=== PATIENT | female | born 1955 | race Caucasian/White ===

== ENCOUNTER 2018-02-02 17:17 | Inpatient (IN) | payer MEDICAID, OTHER ==
[2018-02-02] MEDS ORDERED: Sodium Chloride 0.9% 1,000 ML IV SCH (18:15)
--- NOTE | 2018-02-02 18:25 | ED PDOC ---
Arrival/HPI - General Historian: Patient - History of Present Illness Narrative History of Present Illness (Text): 02/02/18 18:21 62yr old female with hx of DM, HTN, Stroke presents today with 1 week history of worsening headaches, 3 day history of right sided arm numbness. pt states in the morning today she noticed sudden onset of vision loss. pt states she has been having dizziness. pt denies chest pain or shortness of breath. no abdominal pain. no fever/chills. no vomiting/diarrhea. no urinary symptoms. pt states she sees only black in the right eye which occurred suddenly. denies pain with eye movement. per patients daughter her BP was elevated at home so took her BP medication. no other complaints. <Genna Beverly - Last Filed: 02/03/18 01:20> <Wellington Padilla - Last Filed: 02/03/18 22:51> - General Chief Complaint: High Blood Pressure Time Seen by Provider: 02/02/18 17:32 Past Medical History - Provider Review Nursing Documentation Reviewed: Yes - Travel History Have you recently traveled outside [place] w/in the past 3 mons?: No - Infectious Disease Hx of Infectious Diseases: None - Tetanus Immunization Tetanus Immunization: Up to Date - Cardiac Hx Cardiac Disorders: Yes Hx Hypertension: Yes - Pulmonary Hx Respiratory Disorders: Yes Hx Asthma: Yes - Neurological Hx Neurological Disorder: No - HEENT Hx HEENT Disorder: No - Renal Hx Renal Disorder: No - Endocrine/Metabolic Hx Endocrine Disorders: Yes Hx Diabetes Mellitus Type 2: Yes - Hematological/Oncological Hx Blood Disorders: No - Integumentary Hx Dermatological Disorder: No - Musculoskeletal/Rheumatological Hx Musculoskeletal Disorders: No Other/Comment: head injury - Gastrointestinal Hx Gastrointestinal Disorders: No - Genitourinary/Gynecological Hx Genitourinary Disorders: No - Psychiatric Hx Psychophysiologic Disorder: No Hx Substance Use: No - Anesthesia Hx Anesthesia Reactions: No - Suicidal Assessment Feels Threatened In Home Enviroment: No <Genna Beverly - Last Filed: 02/03/18 01:20> Family/Social History - Physician Review Nursing Documentation Reviewed: Yes Family/Social History: Unknown Family HX Smoking Status: Never Smoked Hx Alcohol Use: No Hx Substance Use: No Hx Substance Use Treatment: No <Genna Beverly - Last Filed: 02/03/18 01:20> Allergies/Home Meds <Genna Beverly - Last Filed: 02/03/18 01:20> <Wellington Padilla - Last Filed: 02/03/18 22:51> Allergies/Adverse Reactions: Allergies No Known Allergies Allergy (Verified 02/02/18 17:36) Home Medications: Home Meds Medication Instructions Recorded Confirmed amLODIPine [Norvasc] 5 mg PO DAILY 02/02/18 02/02/18 Albuterol Sulfate [Ventolin Hfa] 1 inh INH PRN PRN 02/03/18 02/03/18 Aspirin [Adult Aspirin] 81 mg PO DAILY 02/03/18 02/03/18 Atorvastatin [Lipitor] 10 mg PO DAILY 02/03/18 02/03/18 Folic Acid 1 mg PO DAILY 02/03/18 02/03/18 Insulin Aspart [Novolog FLEXPEN] 8 units SC AC 02/03/18 02/03/18 Insulin Glargine, Recombina 20 unit SC HS 02/03/18 02/03/18 [Lantus] Linagliptin [Tradjenta] 5 mg PO DAILY 02/03/18 02/03/18 Montelukast [Singulair] 10 mg PO DAILY 02/03/18 02/03/18 Omeprazole 20 mg PO DAILY 02/03/18 02/03/18 Pregabalin [Lyrica] 75 mg PO DAILY 02/03/18 02/03/18 Vitamin B Complex [Nature's Blend 1 tab PO DAILY 02/03/18 02/03/18 Balance B-100] Review of Systems - Review of Systems Constitutional: absent: Fatigue, Fevers Eyes: Vision Changes. absent: Eye Pain ENT: absent: Sinus Congestion Respiratory: absent: SOB, Cough Cardiovascular: absent: Chest Pain, Palpitations Gastrointestinal: absent: Abdominal Pain, Nausea, Vomiting Musculoskeletal: absent: Arthralgias, Back Pain Skin: absent: Rash, Pruritis Neurological: Headache, Dizziness, Other (right arm numbness) Psychiatric: absent: Anxiety, Depression <Genna Beverly - Last Filed: 02/03/18 01:20> Physical Exam Vital Signs Reviewed: Yes Vital Signs Temp Pulse Resp BP Pulse Ox 02/02/18 17:30 99.2 F 84 20 136/84 98 Temperature: Afebrile Blood Pressure: Normal Pulse: Regular Respiratory Rate: Normal Appearance: Positive for: Well-Appearing, Non-Toxic, Comfortable Pain Distress: None Mental Status: Positive for: Alert and Oriented X 3 - Systems Exam Head: Present: Atraumatic Pupils: Present: PERRL Extroacular Muscles: Present: EOMI Conjunctiva: Present: Normal Mouth: Present: Moist Mucous Membranes Neck: Present: Normal Range of Motion Respiratory/Chest: Present: Clear to Auscultation, Good Air Exchange. No: Respiratory Distress, Accessory Muscle Use Cardiovascular: Present: Regular Rate and Rhythm, Normal S1, S2. No: Murmurs Abdomen: No: Tenderness, Rebound, Guarding Back: Present: Normal Inspection Upper Extremity: Present: Normal ROM, NORMAL PULSES, Capillary Refill < 2s. No: Neurovascularly Intact (decreased sensation in right arm. ) Lower Extremity: Present: Normal ROM Neurological: Present: GCS=15, Speech Normal Skin: Present: Warm, Dry Psychiatric: Present: Alert, Oriented x 3 <Genna Beverly T - Last Filed: 02/03/18 01:20> Vital Signs Temp Pulse Resp BP Pulse Ox 02/03/18 00:00 97.6 F 72 16 101/63 99 02/02/18 23:15 78 22 121/45 L 98 02/02/18 23:00 68 18 129/80 96 02/02/18 22:45 92 H 14 145/92 H 97 02/02/18 22:30 72 16 104/72 97 02/02/18 22:15 76 14 102/72 97 02/02/18 22:00 61 20 129/82 99 02/02/18 21:43 77 18 146/83 98 02/02/18 19:31 79 18 134/74 98 02/02/18 17:30 99.2 F 84 20 136/84 98 <Wellington Padilla - Last Filed: 02/03/18 22:51> Medical Decision Making ED Course and Treatment: 02/02/18 pt was seen immediately by dr. Padilla. code stroke called. head ct; FINDINGS: HEMORRHAGE: No intracranial hemorrhage. BRAIN: No mass effect or edema. Cortical and cerebellar atrophy, periventricular small vessel disease. Lacune or infarcts identified particularly on the right. VENTRICLES: Unremarkable. No hydrocephalus. CALVARIUM: No acute findings. Deformity of the left frontal bone which may be the sequela of prior trauma. PARANASAL SINUSES: Unremarkable as visualized. No significant inflammatory changes. MASTOID AIR CELLS: Unremarkable as visualized. No inflammatory changes. OTHER FINDINGS: None. IMPRESSION: No acute intracranial abnormalities. No significant findings to account for the clinical presentation. cbc; elevated WBC Cmp; elevated glucose ekg; normal sinus rhythm at 80 bpm normal axis no ST elevations dr. padilla discussed the case with dr. Abarca; advised CTA head and neck. 02/02/18 21:00 CTA Head and Neck with Intravenous Contrast. CLINICAL HISTORY: CODE STROKE TECHNIQUE: Axial CTA images of the head and neck performed with intravenous contrast. MIP reconstructed images were created and reviewed. 564.81 mGy-cm CONTRAST: With; OMNI 350 142 ml was injected intravenously without incident. COMPARISON: None provided. FINDINGS: VASCULATURE: NECK: COMMON CAROTID ARTERIES No significant canal stenosis. No dissection or occlusion. EXTERNAL CAROTID ARTERIES Patent. NECK: INTERNAL CAROTID ARTERIES No stenosis by NASCET criteria. No dissection or occlusion. VERTEBRAL ARTERIES No significant canal stenosis. No dissection or occlusion. HEAD: ANTERIOR CEREBRAL ARTERIES No significant stenosis. No occlusion. No aneurysm. MIDDLE CEREBRAL ARTERIES No significant stenosis. No occlusion. No aneurysm. POSTERIOR CEREBRAL ARTERIES No significant stenosis. No occlusion. No aneurysm. BASILAR ARTERY No significant stenosis. No occlusion. No aneurysm. OTHER: SOFT TISSUES No acute finding. BONES No acute osseous abnormality. IMPRESSION: Unremarkable CTA of the head and neck. dr. padilla performed bedside ultrasound of eye. No retinal detachment or hemorrhage noted. pressure in right eye measured at 14. pt reassessment; resting comfortably in er. no distress. discussed results with daughter in depth. asa given Po case discussed with dr. corral; accepts admission for r/o stroke, with vision loss, sensory deficit in right arm, headaches. impression; vision loss, right arm numbness, headache admit tele. Reassessment Condition: Re-examined, Unchanged - Lab Interpretations Lab Results: Lab Results 02/02/18 18:14: POC Glucose (mg/dL) 182 H - RAD Interpretation Radiology Orders: 02/02/18 18:14 HEAD W/O (CODE STROKE) [CT] Stat CHEST PORTABLE [RAD] Stat - Medication Orders Current Medication Orders: Sodium Chloride (Sodium Chloride 0.9%) 1,000 mls @ 100 mls/hr IV .Q10H MARLIN <Genna Beverly T - Last Filed: 02/03/18 01:20> - Lab Interpretations Lab Results: 02/02/18 18:20 02/02/18 18:20 Lab Results 02/02/18 19:00: Urine Color Yellow, Urine Appearance Clear, Urine pH 6.0, Ur Specific [place] <= 1.005, Urine Protein Negative, Urine Glucose (UA) Negative, Urine Ketones Negative, Urine Blood Negative, Urine Nitrate Negative, Urine Bilirubin Negative, Urine Urobilinogen 0.2, Ur Leukocyte Esterase Trace H, Urine RBC 0 - 2, Urine WBC 1 - 3, Ur Epithelial Cells 0 - 2, Urine Bacteria Few 02/02/18 19:00: Blood Type A POSITIVE, Antibody Screen Negative, BBK History Checked No verified bt 02/02/18 18:20: Hemoglobin A1c 8.1 H 02/02/18 18:20: Sodium 135, Potassium 4.2, Chloride 100, Carbon Dioxide 25, Anion Gap 14, BUN 16, Creatinine 1.1, Est GFR ( Amer) > 60, Est GFR (Non- Af Amer) 51, Random Glucose 191 H, Calcium 9.5, Total Bilirubin 0.2, AST 29, ALT 19, Alkaline Phosphatase 88, Troponin I < 0.01, Total Protein 8.3, Albumin 4.3, Globulin 4.0, Albumin/Globulin Ratio 1.1, Triglycerides 330 H, Cholesterol 180, LDL Cholesterol Direct 106, HDL Cholesterol 30 02/02/18 18:20: PT 11.4, INR 1.00, APTT 29.0 02/02/18 18:20: WBC 12.7 H, RBC 3.71, Hgb 9.8 L, Hct 31.7 L, MCV 85.4, MCH 26.4, MCHC 30.9 L, RDW 15.6 H, Plt Count 421, MPV 8.4, Gran % 58.6, Lymph % (Auto) 33.6, [place] % (Auto) 7.0 H, Eos % (Auto) 0.6 L, Baso % (Auto) 0.2, Gran # 7.42 H, Lymph # (Auto) 4.3 H, [place] # (Auto) 0.9 H, Eos # (Auto) 0.1, Baso # (Auto) 0.02 02/02/18 18:14: POC Glucose (mg/dL) 182 H - RAD Interpretation Radiology Orders: 02/02/18 18:14 HEAD W/O (CODE STROKE) [CT] Stat CHEST PORTABLE [RAD] Stat 02/02/18 18:52 CTA HEAD/NECK CODE STROKE [CT] Stat - Medication Orders Current Medication Orders: Acetaminophen (Tylenol 325mg Tab) 650 mg PO Q6H PRN PRN Reason: Pain, moderate (4-7) Albuterol/Ipratropium (Duoneb 3 Mg/0.5 Mg (3 Ml) Ud) 3 ml IH Q2H PRN PRN Reason: Shortness of Breath Aspirin (Aspirin Chewable) 81 mg PO DAILY MARLIN Last Admin: 02/03/18 11:38 Dose: 81 mg Atorvastatin Calcium (Lipitor) 20 mg PO DIN MARLIN Last Admin: 02/03/18 17:15 Dose: 20 mg Dextrose (Dextrose 50% Inj) 0 ml IV STAT PRN; Protocol PRN Reason: Hypoglycemia Protocol Famotidine (Pepcid) 40 mg PO HS MARLIN Dextrose (Dextrose 5% In Water 1000 Ml) 1,000 mls @ 0 mls/hr IV .Q0M PRN; Protocol PRN Reason: Hypoglycemia Protocol Insulin Human Regular (Humulin R Med) 0 units SC ACHS MARLIN; Protocol Last Admin: 02/03/18 16:58 Dose: Not Given Non-Admin Reason: BP Parameters Not Met [facility] Blood Glucose Document 02/03/18 16:58 AP (Rec: 02/03/18 16:59 AP [id number]) Blood Glucose Finger Stick Blood Glucose (70-120) 145 Discontinued Medications Aspirin (Aspirin) 325 mg PO STAT STA Stop: 02/02/18 21:10 Last Admin: 02/02/18 21:32 Dose: 325 mg Sodium Chloride (Sodium Chloride 0.9%) 1,000 mls @ 100 mls/hr IV .Q10H MARLIN Last Admin: 02/02/18 19:24 Dose: 100 mls/hr eMAR Start Stop Document 02/02/18 19:24 EQ (Rec: 02/02/18 19:24 EQ [id number]) Intravenous Solution Start Date 02/02/18 Start Time 19:24 <Wellington Padilla - Last Filed: 02/03/18 22:51> NIHSS Scale ([place]) Time Performed: 18:00 - How Severe is the Stoke Baseline Level of Consciousness: 0=Alert LOC to Questions: 0=Both comments correct LOC to commands: 0=Obeys both correctly Best Gaze: 0=Normal Visual: 2=Complete hemianopia Facial: 0=Normal Motor Arm - Left: 0=No drift Motor Arm - Right: 0=No drift Motor Leg - Left: 0=No drift Motor Leg - Right: 0=No drift Limb Ataxia: 0=Absent Sensory: 1=Mild to moderate loss Best Language: 0=No aphasia Dysarthia: 0=Normal articulation Extinction & Inattention (Neglect): 0=Normal, no object Score: 3 Risk Level: Minor Stroke Risk <Genna Beverly - Last Filed: 02/03/18 01:20> rTPA Inclusion/Exclusion - Refusal of Treatment Patient Refused Treatment: No - Inclusion Criteria for Altepase Patient is 18 years or Older: Yes The Clinical Diagnosis of Ischemic Stroke That is Causing a Potentially Disabling Neurological Deficit: Yes Time of Onset is Well Established to be Less Than 270 Minute Before Treatment Would Begin: No Risk/Benefit Discussed With Patient/Family Member Present: No <Wellington Padilla - Last Filed: 02/03/18 22:51> Disposition/Present on Arrival - Present on Arrival Any Indicators Present on Arrival: No History of DVT/PE: No History of Uncontrolled Diabetes: No Urinary Catheter: No History of Decub. Ulcer: No History Surgical Site Infection Following: None - Disposition Have Diagnosis and Disposition been Completed?: Yes Disposition Time: 20:45 Patient Plan: Admission, Telemetry <Genna Beverly - Last Filed: 02/03/18 01:20> <Wellington Padilla - Last Filed: 02/03/18 22:51> - Disposition Diagnosis: Vision loss, Right upper extremity numbness, Headache Disposition: HOSPITALIZED Condition: FAIR
[2018-02-02 18:29] LABS: BASO # 0.02 K/mm3 (0.0-2.0); BASO % 0.2 % (0.0-3.0); EOS # 0.1 (0.0-0.7); EOS % 0.6 % (1.5-5.0); GRAN # 7.42 (1.4-6.5); GRAN % 58.6 % (50.0-68.0); HEMOGLOBIN 9.8 g/dL (12.0-16.0); LYMPH # 4.3 (1.2-3.4); LYMPH % 33.6 % (22.0-35.0); MEAN CELL VOLUME 85.4 fl (80.0-105.0); MEAN CORPUSCULAR HEMOGLOBIN 26.4 pg (25.0-35.0); MEAN CORPUSCULAR HGB CONC 30.9 g/dl (31.0-37.0); MEAN PLATELET VOLUME 8.4 fl (7.0-11.0); MONO # 0.9 (0.1-0.6); RBC 3.71 10^6/uL (3.5-6.1); RED CELL DISTRIBUTION WIDTH 15.6 % (11.5-14.5); WHITE BLOOD COUNT 12.7 10^3/uL (4.5-11.0)
--- NOTE | 2018-02-02 18:45 | CT ---
Date of service: 02/02/2018 PROCEDURE: CT HEAD WITHOUT CONTRAST. HISTORY: Code Stroke COMPARISON: None available. TECHNIQUE: Axial computed tomography images were obtained through the head/brain without intravenous contrast. Supplemental Coronal and Sagittal projections created and reviewed. Radiation dose: Total exam DLP = 849.61 mGy-cm. This CT exam was performed using one or more of the following dose reduction techniques: Automated exposure control, adjustment of the mA and/or kV according to patient size, and/or use of iterative reconstruction technique. FINDINGS: HEMORRHAGE: No intracranial hemorrhage. BRAIN: No mass effect or edema. Cortical and cerebellar atrophy, periventricular small vessel disease. Lacune or infarcts identified particularly on the right. VENTRICLES: Unremarkable. No hydrocephalus. CALVARIUM: No acute findings. Deformity of the left frontal bone which may be the sequela of prior trauma. PARANASAL SINUSES: Unremarkable as visualized. No significant inflammatory changes. MASTOID AIR CELLS: Unremarkable as visualized. No inflammatory changes. OTHER FINDINGS: None. IMPRESSION: No acute intracranial abnormalities. No significant findings to account for the clinical presentation. Code stroke protocol: Study completed 18:26 Radiologist notified 18:34 Results conveyed verbally at 18:40. Interpretation finalized and available for review 18:44.
--- NOTE | 2018-02-02 18:47 | RAD ---
Date of service: 02/02/2018 HISTORY: Code Stroke COMPARISON: None. FINDINGS: LUNGS: No active pulmonary disease. PLEURA: No significant pleural effusion identified, no pneumothorax apparent. CARDIOVASCULAR: No atherosclerotic calcification present Normal. OSSEOUS STRUCTURES: No significant abnormalities. VISUALIZED UPPER ABDOMEN: Normal. OTHER FINDINGS: None. IMPRESSION: No active disease.
[2018-02-02 18:52] LABS: BLOOD UREA NITROGEN 16 mg/dL (7-21); GFR NON-AFRICAN AMERICAN 51
[2018-02-02 18:53] LABS: ALB/GLOB RATIO 1.1 (1.1-1.8); ALBUMIN 4.3 g/dL (3.0-4.8); AST/SGOT 29 U/L (14-36); CALCIUM 9.5 mg/dL (8.4-10.5)
[2018-02-02 18:54] LABS: ALT/SGPT 19 U/L (7-56); HDL CHOLESTEROL 30 mg/dL (29-60)
[2018-02-02 18:59] LABS: LDL CHOLESTEROL 106 mg/dL (0-129); TROPONIN I < 0.01 ng/mL
[2018-02-02 19:47] LABS: PROTHROMBIN TIME 11.4 SECONDS (9.4-12.5)
[2018-02-02 20:00] LABS: URINE BILIRUBIN NEGATIVE (NEGATIVE); URINE BLOOD NEGATIVE (NEGATIVE); URINE GLUCOSE (UA) NEGATIVE (NEGATIVE); URINE LEUKOCYTE ESTERASE TRACE Leu/uL (NEGATIVE); URINE PROTEIN NEGATIVE mg/dL (<30 mg/dL); URINE UROBILINOGEN 0.2 E.U./dL (<1 E.U./dL)
[2018-02-02 20:08] LABS: URINE APPEARANCE CLEAR (CLEAR); URINE COLOR YELLOW (YELLOW)
[2018-02-02 20:13] LABS: URINE BACTERIA FEW (NEG); URINE EPITHELIAL CELLS 0 - 2 /hpf (0-5); URINE RBC 0 - 2 /hpf (0-2)
[2018-02-02 22:21] VITALS: O2SAT 99
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
[2018-02-02] MEDS ORDERED: Dextrose 50% SYRINGE Inj (50 ml) IV PRN (23:10)
[2018-02-02] MEDS ORDERED: Albuterol-Ipratrop 3 mg / 0.5 (3 ml) UD IH PRN (23:10)
[2018-02-03 06:10] VITALS: BMI 12.9
[2018-02-03 06:41] LABS: IRON 40 ug/dL (45-180)
[2018-02-03 06:50] LABS: % IRON SATURATION 17 % (20-55); TOTAL IRON BINDING CAPACITY 233 ug/dL (265-497)
[2018-02-03 06:57] LABS: FREE T4 1.31 ng/dL (0.78-2.19)
[2018-02-03 07:09] LABS: ALBUMIN 3.4 g/dL (3.0-4.8); ALT/SGPT 17 U/L (7-56); AST/SGOT 33 U/L (14-36); BLOOD UREA NITROGEN 13 mg/dL (7-21); CALCIUM 8.4 mg/dL (8.4-10.5); GFR NON-AFRICAN AMERICAN 57
[2018-02-03 08:24] LABS: BASO # 0.01 K/mm3 (0.0-2.0); BASO % 0.1 % (0.0-3.0); EOS # 0.1 (0.0-0.7); EOS % 0.9 % (1.5-5.0); GRAN # 5.96 (1.4-6.5); GRAN % 55.2 % (50.0-68.0); HEMOGLOBIN 8.7 g/dL (12.0-16.0); LYMPH % 37.1 % (22.0-35.0); MEAN CELL VOLUME 86.3 fl (80.0-105.0); MEAN CORPUSCULAR HEMOGLOBIN 26.4 pg (25.0-35.0); MEAN CORPUSCULAR HGB CONC 30.6 g/dl (31.0-37.0); MONO # 0.7 (0.1-0.6); MONO % 6.7 % (1.0-6.0); RBC 3.29 10^6/uL (3.5-6.1); RED CELL DISTRIBUTION WIDTH 16.2 % (11.5-14.5); WHITE BLOOD COUNT 10.8 10^3/uL (4.5-11.0)
[2018-02-03] MEDS: Insulin Reg-MEDIUM-Coverage SC SCH ×4 (08:38→22:49)
--- NOTE | 2018-02-03 09:10 | CARD ---
APPROVED REPORT Date of service: 02/02/2018 EKG Measurement Heart [id number] <Conclusion> Normal sinus rhythm Normal ECG
[2018-02-03] MEDS ORDERED: Gadodiamide 287 MG/ML VIAL (15ML) IV ONE (10:03)
--- NOTE | 2018-02-03 12:31 | CT ---
Date of service: 02/02/2018 PROCEDURE: CT Angiography of the Brain and neck. HISTORY: code stroke COMPARISON: None available. TECHNIQUE: A volumetric CT acquisition through the intracranial and neck arterial system was performed following dynamic intravenous contrast administration. Reformatted dataset have been provided. Contrast Dose: Omnipaque 350, 142 cc Radiation dose: Total exam DLP = 564.81 mGy-cm. This CT exam was performed using one or more of the following dose reduction techniques: Automated exposure control, adjustment of the mA and/or kV according to patient size, and/or use of iterative reconstruction technique. FINDINGS: INTERNAL CEREBRAL ARTERIES: Unremarkable. The skull base, petrous, cavernous and supraclinoid segments are bilaterally widely patent. ANTERIOR CEREBRAL ARTERIES: Unremarkable. A1 and A2 segments are widely patent. Smaller distal branches unremarkable, as visualized. MIDDLE CEREBRAL ARTERIES: Unremarkable. M1 and M2 segments are widely patent. Perisylvian branches grossly symmetric. POSTERIOR CIRCULATION: Basilar Artery: Unremarkable. Distal Vertebral Arteries: Right dominant vertebrobasilar circulation identified. Posterior Cerebral Arteries: Unremarkable. Posterior Inferior Cerebellar Arteries: Unremarkable. NECK CTA: Common Carotid arteries: The bilateral common carotid appear widely patent from their origins to their bifurcations with no significant stenosis appreciated. No evidence to suggest common carotid artery dissection. Mild atherosclerotic plaques identified at the left carotid bulb. Internal Carotid arteries: No significant stenosis is appreciated throughout the cervical internal carotid artery segments bilaterally and there is no evidence of dissection either. External Carotid arteries: Appear unremarkable bilaterally. Vertebral arteries: The bilateral vertebral arteries appear normal in caliber from their origins to their distal cervical segments. No significant stenosis or definite pattern of dissection. ANEURYSM/ VASCULAR MALFORMATIONS: None. OTHER FINDINGS: None. IMPRESSION: Unremarkable CT Angiography of the Brain. Limited atherosclerotic plaque left carotid bulb with the CTA of the Neck otherwise unremarkable.
--- NOTE | 2018-02-03 13:35 | CP.PCM.CON ---
History of Present Illness - History of Present Illness History of Present Illness: Neurology Consult Note for Dr. Abarca Reason for Consultation: Right eye vision loss and RUE weakness Patient is a 62 yo F with PMH of asthma, DM, HTN, and CVA presents to [facility] for one week history of headache, right arm numbness/weakness, and right eye vision loss. Patient is currently visiting from [facility] and has been in the [place] for one week. Patient states that she has had vision problems in her right eye for about year and has gotten progressively worse. The vision loss is described as a curtain falling over her eye. Patient denies any pain. Patient states that the right arm numbness/weakness is residual from previous stroke, but seems to be mildly worse. Patient denies CP, SOB, n/v/d, abdominal pain, fever, chills, or d izziness. PMH: asthma, DM, HTN and CVA SH: denies smoking, drinking and drugs. Chews tobacco daily Surg: cataracts FH: HTN All: NKDA Review of Systems - Review of Systems All systems: reviewed and no additional remarkable complaints except (12 point ROS reviewed and is negative other than what is stated in HPI.) Past Patient History - Infectious Disease Hx of Infectious Diseases: None - Tetanus Immunizations Tetanus Immunization: Up to Date - Past Social History Smoking Status: chews toba - CARDIAC Hx Hypertension: Yes - PULMONARY Hx Asthma: Yes - NEUROLOGICAL Hx Neurological Disorder: No - HEENT Hx HEENT Problems: No - RENAL Hx Chronic Kidney Disease: No - ENDOCRINE/METABOLIC Hx Diabetes Mellitus Type 2: Yes - HEMATOLOGICAL/ONCOLOGICAL Hx Blood Disorders: No - INTEGUMENTARY Hx Dermatological Problems: No - MUSCULOSKELETAL/RHEUMATOLOGICAL Hx Falls: No - GASTROINTESTINAL Hx Gastrointestinal Disorders: No - GENITOURINARY/GYNECOLOGICAL Hx Genitourinary Disorders: No - PSYCHIATRIC Hx Substance Use: No - SURGICAL HISTORY Hx Surgeries: No - ANESTHESIA Hx Anesthesia Reactions: No Meds Allergies/Adverse Reactions: Allergies Allergy/AdvReac Type Severity Reaction Status Date / Time No Known Allergies Allergy Verified 02/02/18 17:36 - Medications Medications: Current Medications Acetaminophen (Tylenol 325mg Tab) 650 mg PO Q6H PRN PRN Reason: Pain, moderate (4-7) Albuterol/Ipratropium (Duoneb 3 Mg/0.5 Mg (3 Ml) Ud) 3 ml IH Q2H PRN PRN Reason: Shortness of Breath Aspirin (Aspirin Chewable) 81 mg PO DAILY [facility] Last Admin: 02/03/18 11:38 Dose: 81 mg Atorvastatin Calcium (Lipitor) 20 mg PO DIN [facility] Dextrose (Dextrose 50% Inj) 0 ml IV STAT PRN; Protocol PRN Reason: Hypoglycemia Protocol Famotidine (Pepcid) 40 mg PO HS [place] Dextrose (Dextrose 5% In Water 1000 Ml) 1,000 mls @ 0 mls/hr IV .Q0M PRN; Protocol PRN Reason: Hypoglycemia Protocol Insulin Human Regular (Humulin R Med) 0 units SC ACHS [facility]; Protocol Last Admin: 02/03/18 12:16 Dose: Not Given Physical Exam - Constitutional Appears: No Acute Distress - Head Exam Head Exam: NORMAL INSPECTION - Eye Exam Eye Exam: EOMI (painless), Normal appearance - ENT Exam ENT Exam: Mucous Membranes Moist - Neck Exam Neck exam: Positive for: Normal Inspection - Respiratory Exam Respiratory Exam: Clear to Auscultation Bilateral. absent: Rales, Rhonchi, Wheezes - Cardiovascular Exam Cardiovascular Exam: REGULAR RHYTHM - GI/Abdominal Exam GI & Abdominal Exam: Normal Bowel Sounds, Soft - Extremities Exam Extremities exam: Positive for: normal inspection - Back Exam Back exam: NORMAL INSPECTION - Neurological Exam Neurological exam: Alert, CN II-XII Intact, Oriented x3 Additional comments: RUE +4/5. LUE 5/5 B/L lower extremities 5/5 muscle strength No sensory deficits grossly appreciated Results - Vital Signs Recent Vital Signs: Last Vital Signs Temp 98.0 F 02/03/18 12:00 Pulse 74 02/03/18 12:00 Resp 19 02/03/18 12:00 BP 127/78 02/03/18 12:00 Pulse Ox 99 02/03/18 04:00 - Labs Result Diagrams: 02/03/18 05:50 02/03/18 05:50 Labs: Laboratory Results - last 24 hr 02/02/18 02/02/18 02/02/18 18:14 18:20 18:20 WBC 12.7 H RBC 3.71 Hgb 9.8 L Hct 31.7 L MCV 85.4 MCH 26.4 MCHC 30.9 L RDW 15.6 H Plt Count 421 MPV 8.4 Gran % 58.6 Lymph % (Auto) 33.6 [place] % (Auto) 7.0 H Eos % (Auto) 0.6 L Baso % (Auto) 0.2 Gran # 7.42 H Lymph # (Auto) 4.3 H [place] # (Auto) 0.9 H Eos # (Auto) 0.1 Baso # (Auto) 0.02 ESR PT 11.4 INR 1.00 APTT 29.0 Sodium Potassium Chloride Carbon Dioxide Anion Gap BUN Creatinine Est GFR ( Amer) Est GFR (Non-Af Amer) POC Glucose (mg/dL) 182 H Random Glucose Hemoglobin A1c Calcium Phosphorus Magnesium Iron TIBC % Saturation Total Bilirubin AST ALT Alkaline Phosphatase Troponin I C-React Prot High Sens Total Protein Albumin Globulin Albumin/Globulin Ratio Triglycerides Cholesterol LDL Cholesterol Direct HDL Cholesterol Free T4 TSH 3rd Generation Urine Color Urine Appearance Urine pH Ur Specific [place] Urine Protein Urine Glucose (UA) Urine Ketones Urine Blood Urine Nitrate Urine Bilirubin Urine Urobilinogen Ur Leukocyte Esterase Urine RBC Urine WBC Ur Epithelial Cells Urine Bacteria Blood Type Blood Type Confirm Antibody Screen BBK History Checked 02/02/18 02/02/18 02/02/18 18:20 18:20 19:00 WBC RBC Hgb Hct MCV MCH MCHC RDW Plt Count MPV Gran % Lymph % (Auto) [place] % (Auto) Eos % (Auto) Baso % (Auto) Gran # Lymph # (Auto) [place] # (Auto) Eos # (Auto) Baso # (Auto) ESR PT INR APTT Sodium 135 Potassium 4.2 Chloride 100 Carbon Dioxide 25 Anion Gap 14 BUN 16 Creatinine 1.1 Est GFR ( Amer) > 60 Est GFR (Non-Af Amer) 51 POC Glucose (mg/dL) Random Glucose 191 H Hemoglobin A1c 8.1 H Calcium 9.5 Phosphorus Magnesium Iron TIBC % Saturation Total Bilirubin 0.2 AST 29 ALT 19 Alkaline Phosphatase 88 Troponin I < 0.01 C-React Prot High Sens Total Protein 8.3 Albumin 4.3 Globulin 4.0 Albumin/Globulin Ratio 1.1 Triglycerides 330 H Cholesterol 180 LDL Cholesterol Direct 106 HDL Cholesterol 30 Free T4 TSH 3rd Generation Urine Color Urine Appearance Urine pH Ur Specific [place] Urine Protein Urine Glucose (UA) Urine Ketones Urine Blood Urine Nitrate Urine Bilirubin Urine Urobilinogen Ur Leukocyte Esterase Urine RBC Urine WBC Ur Epithelial Cells Urine Bacteria Blood Type A POSITIVE Blood Type Confirm Antibody Screen Negative BBK History Checked No verified bt 02/02/18 02/03/1818 19:00 05:50 05:50 WBC 10.8 RBC 3.29 L Hgb 8.7 L Hct 28.4 L MCV 86.3 MCH 26.4 MCHC 30.6 L RDW 16.2 H Plt Count 403 MPV 9.0 Gran % 55.2 Lymph % (Auto) 37.1 H [place] % (Auto) 6.7 H Eos % (Auto) 0.9 L Baso % (Auto) 0.1 Gran # 5.96 Lymph # (Auto) 4.0 H [place] # (Auto) 0.7 H Eos # (Auto) 0.1 Baso # (Auto) 0.01 ESR 85 H PT INR APTT Sodium Potassium Chloride Carbon Dioxide Anion Gap BUN Creatinine Est GFR ( Amer) Est GFR (Non-Af Amer) POC Glucose (mg/dL) Random Glucose Hemoglobin A1c Calcium Phosphorus Magnesium Iron TIBC % Saturation Total Bilirubin AST ALT Alkaline Phosphatase Troponin I C-React Prot High Sens Total Protein Albumin Globulin Albumin/Globulin Ratio Triglycerides Cholesterol LDL Cholesterol Direct HDL Cholesterol Free T4 TSH 3rd Generation Urine Color Yellow Urine Appearance Clear Urine pH 6.0 Ur Specific [place] <= 1.005 Urine Protein Negative Urine Glucose (UA) Negative Urine Ketones Negative Urine Blood Negative Urine Nitrate Negative Urine Bilirubin Negative Urine Urobilinogen 0.2 Ur Leukocyte Esterase Trace H Urine RBC 0 - 2 Urine WBC 1 - 3 Ur Epithelial Cells 0 - 2 Urine Bacteria Few Blood Type Blood Type Confirm A POSITIVE Antibody Screen BBK History Checked 02/03/18 02/03/18 02/03/18 05:50 05:50 05:50 WBC RBC Hgb Hct MCV MCH MCHC RDW Plt Count MPV Gran % Lymph % (Auto) [place] % (Auto) Eos % (Auto) Baso % (Auto) Gran # Lymph # (Auto) [place] # (Auto) Eos # (Auto) Baso # (Auto) ESR PT INR APTT Sodium 138 Potassium 4.7 Chloride 106 Carbon Dioxide 28 Anion Gap 9 L BUN 13 Creatinine 1.0 Est GFR ( Amer) > 60 Est GFR (Non-Af Amer) 57 POC Glucose (mg/dL) Random Glucose 157 H Hemoglobin A1c Calcium 8.4 Phosphorus 4.6 H Magnesium 1.9 Iron 40 L TIBC 233 L % Saturation 17 L Total Bilirubin 0.1 L AST 33 ALT 17 Alkaline Phosphatase 74 Troponin I C-React Prot High Sens > 15.00 H Total Protein 6.8 Albumin 3.4 Globulin 3.4 Albumin/Globulin Ratio 1.0 L Triglycerides Cholesterol LDL Cholesterol Direct HDL Cholesterol Free T4 1.31 TSH 3rd Generation 2.81 Urine Color Urine Appearance Urine pH Ur Specific [place] Urine Protein Urine Glucose (UA) Urine Ketones Urine Blood Urine Nitrate Urine Bilirubin Urine Urobilinogen Ur Leukocyte Esterase Urine RBC Urine WBC Ur Epithelial Cells Urine Bacteria Blood Type Blood Type Confirm Antibody Screen BBK History Checked Assessment & Plan - Assessment and Plan (Free Text) Assessment: 62 yo F with PMH of asthma, HTN, DM, and CVA presents to [facility] for RUE weakness and right eye vision loss. Patient is neurologically stable and her deficits are likely chronic. Recommend ASA, PT/OT, BP and glucose control.
--- NOTE | 2018-02-03 14:19 | MRI ---
Date of service: 02/03/2018 PROCEDURE: MRI BRAIN WITH AND WITHOUT CONTRAST HISTORY: right arm weakness/numbness COMPARISON: Noncontrast head CT 02/02/2018. TECHNIQUE: Multiplanar, multisequence MR images of the brain were obtained with and without intravenous contrast enhancement (Omniscan 15 cc). FINDINGS: HEMORRHAGE: None DWI: No evidence of an acute or early subacute infarction. BRAIN PARENCHYMA: Good corticomedullary differentiation is seen. Proportional, diffuse expansion of the ventriculosulcal and cisternal spaces is appreciated with white matter signal changes compatible with diffuse cerebral atrophy and chronic microangiopathy. A small chronic lobar infarctions in the left frontal lobe anteriorly. 2-3 small chronic lacunes are seen at the right basal ganglia. There is a small chronic lobar infarction left frontal lobe and likely tiny left thalamic chronic lacune. No suspicious extra-axial fluid collection is identified and the midline brain anatomy appears grossly nonfocal as imaged. There is no mass effect throughout. ENHANCEMENT: No abnormal intracranial enhancement. VENTRICLES: Unremarkable. No hydrocephalus. CRANIUM: Unremarkable. ORBITS: Grossly unremarkable. PARANASAL SINUSES/MASTOIDS: Clear VASCULAR SYSTEM: Skull base flow voids intact. OTHER FINDINGS: None . IMPRESSION: 1. No definite acute intracranial findings or abnormal intracranial enhancement. 2. Age-appropriate age related neuro degenerative changes are identified. 3. Small chronic lobar infarction left frontal lobe reiterated as well as chronic lacune is at the right basal ganglia. Left lamina chronic lacune better seen currently than in prior head CT 02/02/2018.
[2018-02-04 06:48] LABS: BASO # 0.03 K/mm3 (0.0-2.0); BASO % 0.3 % (0.0-3.0); EOS # 0.1 (0.0-0.7); EOS % 0.6 % (1.5-5.0); GRAN # 7.04 (1.4-6.5); GRAN % 66.5 % (50.0-68.0); HEMOGLOBIN 9.2 g/dL (12.0-16.0); LYMPH # 2.9 (1.2-3.4); LYMPH % 27.5 % (22.0-35.0); MEAN CELL VOLUME 86.2 fl (80.0-105.0); MEAN CORPUSCULAR HEMOGLOBIN 25.9 pg (25.0-35.0); MEAN CORPUSCULAR HGB CONC 30.1 g/dl (31.0-37.0); MONO # 0.5 (0.1-0.6); MONO % 5.1 % (1.0-6.0); RBC 3.55 10^6/uL (3.5-6.1); RED CELL DISTRIBUTION WIDTH 15.8 % (11.5-14.5); WHITE BLOOD COUNT 10.6 10^3/uL (4.5-11.0)
[2018-02-04 07:08] LABS: ALB/GLOB RATIO 1.1 (1.1-1.8); ALBUMIN 3.8 g/dL (3.0-4.8); CALCIUM 9.3 mg/dL (8.4-10.5)
[2018-02-04] MEDS: Insulin Reg-MEDIUM-Coverage SC SCH ×2 (08:02→12:20)
[2018-02-04 12:40] VITALS: BP 152/92; PULSE 83; RESP 18; TEMP 99.1
[2018-02-04] MEDS ORDERED: Influenza Vaccine 60 mcg/0.5 mL SYR (4YR UP) IM ONE (13:14)
[2018-02-04] MEDS ORDERED: Pneumococcal 23-Valent Vaccine IM ONE (13:18)
--- NOTE | 2018-02-04 21:04 | CP.PCM.DIS ---
<Paula Hardy - Last Filed: 02/04/18 20:48> Provider - Provider Date of Admission: 02/02/18 21:04 Attending physician: Jasmin Terry MD Consults: 02/02/18 18:14 Stroke Team Consult Stat Comment: Consulting Provider: Neurohospitalist Consulting Physician: NEUROHOSP Neurohospitalist for Consult: Irineo Cortez Neurohospitalist for Consult: Joni Abarca Reason for Consult: code stroke 02/02/18 23:27 Physician Consult Routine Comment: Consulting Provider: Michael Humphries Consulting Physician: Michael Humphries Reason for Consult: right eye visual loss 02/03/18 08:01 Physician Consult Routine Comment: Consulting Provider: Joni Abarca Consulting Physician: Joni Abarca Reason for Consult: Code Stroke Time Spent in preparation of Discharge (in minutes): 45 Diagnosis - Discharge Diagnosis (1) Headache Status: Acute (2) Vision loss Status: Acute Hospital Course - Lab Results Lab Results: Micro Results 02/02/18 21:00 Urine,Clean Catch Urine Culture - Final No Growth (<1,000 CFU/ML) Most Recent Lab Values WBC 10.6 10^3/uL (4.5-11.0) 02/04/18 06:00 RBC 3.55 10^6/uL (3.5-6.1) 02/04/18 06:00 Hgb 9.2 g/dL (12.0-16.0) L 02/04/18 06:00 Hct 30.6 % (36.0-48.0) L 02/04/18 06:00 MCV 86.2 fl (80.0-105.0) 02/04/18 06:00 MCH 25.9 pg (25.0-35.0) 02/04/18 06:00 MCHC 30.1 g/dl (31.0-37.0) L 02/04/18 06:00 RDW 15.8 % (11.5-14.5) H 02/04/18 06:00 Plt Count 418 10^3/uL (120.0-450.0) 02/04/18 06:00 MPV 9.0 fl (7.0-11.0) 02/04/18 06:00 Gran % 66.5 % (50.0-68.0) 02/04/18 06:00 Lymph % (Auto) 27.5 % (22.0-35.0) 02/04/18 06:00 Benson % (Auto) 5.1 % (1.0-6.0) 02/04/18 06:00 Eos % (Auto) 0.6 % (1.5-5.0) L 02/04/18 06:00 Baso % (Auto) 0.3 % (0.0-3.0) 02/04/18 06:00 Gran # 7.04 (1.4-6.5) H 02/04/18 06:00 Lymph # (Auto) 2.9 (1.2-3.4) 02/04/18 06:00 Benson # (Auto) 0.5 (0.1-0.6) 02/04/18 06:00 Eos # (Auto) 0.1 (0.0-0.7) 02/04/18 06:00 Baso # (Auto) 0.03 K/mm3 (0.0-2.0) 02/04/18 06:00 ESR 85 mm/hr (0.0-20.0) H 02/03/18 05:50 PT 11.4 SECONDS (9.4-12.5) 02/02/18 18:20 INR 1.00 02/02/18 18:20 APTT 29.0 Seconds (25.1-36.5) 02/02/18 18:20 Sodium 137 mmol/L (132-148) 02/04/18 06:00 Potassium 4.7 mmol/L (3.6-5.0) 02/04/18 06:00 Chloride 101 mmol/L (98-107) 02/04/18 06:00 Carbon Dioxide 26 mmol/L (21-33) 02/04/18 06:00 Anion Gap 15 (10-20) 02/04/18 06:00 BUN 12 mg/dL (7-21) 02/04/18 06:00 Creatinine 1.2 mg/dl (0.7-1.2) 02/04/18 06:00 Est GFR ( Amer) 55 02/04/18 06:00 Est GFR (Non-Af Amer) 46 02/04/18 06:00 POC Glucose (mg/dL) 182 mg/dL (65-110) H 02/02/18 18:14 Random Glucose 288 mg/dL (70-110) H 02/04/18 06:00 Hemoglobin A1c 8.1 % (4.2-6.5) H 02/02/18 18:20 Calcium 9.3 mg/dL (8.4-10.5) 02/04/18 06:00 Phosphorus 4.6 mg/dL (2.5-4.5) H 02/03/18 05:50 Magnesium 1.9 mg/dL (1.7-2.2) 02/03/18 05:50 Iron 40 ug/dL (45-180) L 02/03/18 05:50 TIBC 233 ug/dL (265-497) L 02/03/18 05:50 % Saturation 17 % (20-55) L 02/03/18 05:50 Total Bilirubin 0.2 mg/dL (0.2-1.3) 02/04/18 06:00 AST 25 U/L (14-36) 02/04/18 06:00 ALT 9 U/L (7-56) 02/04/18 06:00 Alkaline Phosphatase 76 U/L (38-126) 02/04/18 06:00 Troponin I < 0.01 ng/mL 02/02/18 18:20 C-Reactive Protein 26.90 mg/L (0.0-9.9) H 02/03/18 05:50 C-React Prot High Sens > 15.00 mg/L (1.00-3.00) H 02/03/18 05:50 Total Protein 7.4 g/dL (5.8-8.3) 02/04/18 06:00 Albumin 3.8 g/dL (3.0-4.8) 02/04/18 06:00 Globulin 3.6 gm/dL 02/04/18 06:00 Albumin/Globulin Ratio 1.1 (1.1-1.8) 02/04/18 06:00 Triglycerides 330 mg/dL (35-160) H 02/02/18 18:20 Cholesterol 180 mg/dL (130-200) 02/02/18 18:20 LDL Cholesterol Direct 106 mg/dL (0-129) 02/02/18 18:20 HDL Cholesterol 30 mg/dL (29-60) 02/02/18 18:20 Procalcitonin < 0.05 NG/ML (0.19-0.49) L 02/03/18 05:50 Free T4 1.31 ng/dL (0.78-2.19) 02/03/18 05:50 TSH 3rd Generation 2.81 mIU/mL (0.46-4.68) 02/03/18 05:50 Urine Color Yellow (YELLOW) 02/02/18 19:00 Urine Appearance Clear (CLEAR) 02/02/18 19:00 Urine pH 6.0 (4.7-8.0) 02/02/18 19:00 Ur Specific [place] <= 1.005 (1.005-1.035) 02/02/18 19:00 Urine Protein Negative mg/dL (<30 mg/dL) 02/02/18 19:00 Urine Glucose (UA) Negative mg/dL (NEGATIVE) 02/02/18 19:00 Urine Ketones Negative mg/dL (NEGATIVE) 02/02/18 19:00 Urine Blood Negative (NEGATIVE) 02/02/18 19:00 Urine Nitrate Negative (NEGATIVE) 02/02/18 19:00 Urine Bilirubin Negative (NEGATIVE) 02/02/18 19:00 Urine Urobilinogen 0.2 E.U./dL (<1 E.U./dL) 02/02/18 19:00 Ur Leukocyte Esterase Trace Zion/uL (NEGATIVE) H 02/02/18 19:00 Urine RBC 0 - 2 /hpf (0-2) 02/02/18 19:00 Urine WBC 1 - 3 /hpf (0-6) 02/02/18 19:00 Ur Epithelial Cells 0 - 2 /hpf (0-5) 02/02/18 19:00 Urine Bacteria Few (NEG) 02/02/18 19:00 Blood Type A POSITIVE 02/02/18 19:00 Blood Type Confirm A POSITIVE 02/03/18 05:50 Antibody Screen Negative 02/02/18 19:00 BBK History Checked No verified bt 02/02/18 19:00 - Hospital Course Hospital Course: Upon Admission: This is a 62 year old Tamazight speaking female with PMH of asthma, DM, HTN and stroke many years ago presenting to the ED for one week history of headache and right arm numbness/weakness as well as sudden onset vision loss of the right eye. [place] from [facility] and is visiting family locally. She states she has been having worsening headache over the last week associated with neck pain and 3 day history of right arm numbness and weakness. This morning she woke up and noticed that she could not see from the right eye and admits to a "curtain" falling over her eye which is the reason she is presenting to the ED. She denies every having similar symptoms in past. Of note, patient states that she has had significant right eye blurriness over the last year and has not seen a doctor or been evaluated. She also admits to a cold 2 weeks ago with subjective fever that resolved spontaneously 1 week ago. She denies CP, SOB, nausea, vomiting, abdominal pain, diarrhea, constipation, urinary complaints, hematuria, hematochezia, melena, swelling, recent trauma and lifestyle changes including weight loss/gain. 12 point ROS noted here, otherwise unremarkable. Hospital Course: The pt was being worked up for her R eye vision loss. Upon clarification the pt states that it is not actualy vision loss, rather it is generalized blurring of vision. In the ED, a right eye ultrasound was done and was negative for retinal detachment. There was also some concern for stroke vs amaurosis fugax. CT head was done and showed no acute intracranial abnormalities, no significant findings to account for the clinical presentation. Head and neck CTA was then performed and was noted to be unremarkable. Next MRI brain was ordered and it showed no d efinite acute intracranial findinga. Opthamology, Dr. Humphries, was then consulted who stated that the pt should be sent to his office as an outpt follow up for further evaluation. For the pts R arm weakness/numbness neurochecks were performed and vital signs were checked every 4 hours. Pt was placed on aspiration precautions, fall precautions, and PT was consulted. Pt was placed on ASA 81 and lipitor 20 and neurology was consulted, Dr. Abarca. The neurology team reviewed the case and the imaging and cleared the pt neurologically. The pt and family was made aware of the medical decision for discharge which the pt expressed understanding and agreement with the medical plan. All of the pts questions and concerns were addressed prior to d/c. Discharge Exam - Head Exam Head Exam: ATRAUMATIC, NORMAL INSPECTION, NORMOCEPHALIC - Eye Exam Eye Exam: EOMI, Normal appearance, PERRL - Respiratory Exam Respiratory Exam: Clear to PA & Lateral, Wheezes, Stridor, NORMAL BREATHING PATTERN, UNREMARKABLE. absent: Accessory Muscle Use, Rales, Rhonchi, Respiratory Distress - Cardiovascular Exam Cardiovascular Exam: RRR, +S1, +S2. absent: Gallop, Rubs - GI/Abdominal Exam GI & Abdominal Exam: Normal Bowel Sounds, Soft, Unremarkable. absent: Distended, Firm, Guarding, Tenderness - Extremities Exam Extremities exam: normal capillary refill, pedal pulses present - Back Exam Back exam: NORMAL INSPECTION. absent: CVA tenderness (L), CVA tenderness (R) - Neurological Exam Neurological exam: Alert, Oriented x3 - Psychiatric Exam Psychiatric exam: Normal Affect, Normal Mood - Skin Skin Exam: Dry, Normal Color, Warm Discharge Plan - Discharge Medications Prescriptions: Albuterol Sulfate [Ventolin Hfa] 1 inh INH Q4 30 Days hfa.aer.ad amLODIPine [Norvasc] 5 mg PO DAILY 30 Days #30 tab Aspirin [Adult Aspirin] 81 mg PO DAILY 30 Days #30 tablet. Atorvastatin [Lipitor] 10 mg PO DAILY 30 Days #30 tab Folic Acid 1 mg PO DAILY 30 Days #30 tab Insulin Glargine, Recombina [Lantus] 20 unit SC HS 30 Days unit Linagliptin [Tradjenta] 5 mg PO DAILY 30 Days #30 tablet Montelukast [Singulair] 10 mg PO DAILY 30 Days #30 tab Omeprazole 20 mg PO DAILY 30 Days #30 capsule. Pregabalin [Lyrica] 75 mg PO DAILY 3 Days #30 cap Vitamin B Complex [Balance B-100] 1 tab PO DAILY 30 Days #30 tablet - Follow Up Plan Condition: FAIR Disposition: HOME/ ROUTINE Instructions: Type 1 Diabetes, Headache, Adult, High Blood Pressure (DC), Diabetes Diet , Cataracts (DC) Additional Instructions: Please follow up with Dr. Ty (eye doctor) as outpatient for chronic vision changes. You were given a prescription for all home medication. You can follow up with the [facility] ONCE YOU APPLY FOR [facility]. If your symptoms worsen, please go to nearest emergency department. Referrals: [facility] [place] [facility] [place] Michael Humphries MD [Staff Provider] - <Vlad Borden - Last Filed: 02/05/18 17:30> Provider - Provider Date of Admission: 02/02/18 21:04 Attending physician: Jasmin Terry MD Consults: 02/02/18 18:14 Stroke Team Consult Stat Comment: Consulting Provider: Neurohospitalist Consulting Physician: NEUROHOSP Neurohospitalist for Consult: Irineo Cortez Neurohospitalist for Consult: Joni Abarca Reason for Consult: code stroke 02/02/18 23:27 Physician Consult Routine Comment: Consulting Provider: Michael Humphries Consulting Physician: Michael Humphries Reason for Consult: right eye visual loss 02/03/18 08:01 Physician Consult Routine Comment: Consulting Provider: Joni Abarca Consulting Physician: Joni Abarca Reason for Consult: Code Stroke Hospital Course - Lab Results Lab Results: Micro Results 02/02/18 21:00 Urine,Clean Catch Urine Culture - Final No Growth (<1,000 CFU/ML) Most Recent Lab Values WBC 10.6 10^3/uL (4.5-11.0) 02/04/18 06:00 RBC 3.55 10^6/uL (3.5-6.1) 02/04/18 06:00 Hgb 9.2 g/dL (12.0-16.0) L 02/04/18 06:00 Hct 30.6 % (36.0-48.0) L 02/04/18 06:00 MCV 86.2 fl (80.0-105.0) 02/04/18 06:00 MCH 25.9 pg (25.0-35.0) 02/04/18 06:00 MCHC 30.1 g/dl (31.0-37.0) L 02/04/18 06:00 RDW 15.8 % (11.5-14.5) H 02/04/18 06:00 Plt Count 418 10^3/uL (120.0-450.0) 02/04/18 06:00 MPV 9.0 fl (7.0-11.0) 02/04/18 06:00 Gran % 66.5 % (50.0-68.0) 02/04/18 06:00 Lymph % (Auto) 27.5 % (22.0-35.0) 02/04/18 06:00 Benson % (Auto) 5.1 % (1.0-6.0) 02/04/18 06:00 Eos % (Auto) 0.6 % (1.5-5.0) L 02/04/18 06:00 Baso % (Auto) 0.3 % (0.0-3.0) 02/04/18 06:00 Gran # 7.04 (1.4-6.5) H 02/04/18 06:00 Lymph # (Auto) 2.9 (1.2-3.4) 02/04/18 06:00 Benson # (Auto) 0.5 (0.1-0.6) 02/04/18 06:00 Eos # (Auto) 0.1 (0.0-0.7) 02/04/18 06:00 Baso # (Auto) 0.03 K/mm3 (0.0-2.0) 02/04/18 06:00 ESR 85 mm/hr (0.0-20.0) H 02/03/18 05:50 PT 11.4 SECONDS (9.4-12.5) 02/02/18 18:20 INR 1.00 02/02/18 18:20 APTT 29.0 Seconds (25.1-36.5) 02/02/18 18:20 Sodium 137 mmol/L (132-148) 02/04/18 06:00 Potassium 4.7 mmol/L (3.6-5.0) 02/04/18 06:00 Chloride 101 mmol/L (98-107) 02/04/18 06:00 Carbon Dioxide 26 mmol/L (21-33) 02/04/18 06:00 Anion Gap 15 (10-20) 02/04/18 06:00 BUN 12 mg/dL (7-21) 02/04/18 06:00 Creatinine 1.2 mg/dl (0.7-1.2) 02/04/18 06:00 Est GFR ( Amer) 55 02/04/18 06:00 Est GFR (Non-Af Amer) 46 02/04/18 06:00 POC Glucose (mg/dL) 182 mg/dL (65-110) H 02/02/18 18:14 Random Glucose 288 mg/dL (70-110) H 02/04/18 06:00 Hemoglobin A1c 8.1 % (4.2-6.5) H 02/02/18 18:20 Calcium 9.3 mg/dL (8.4-10.5) 02/04/18 06:00 Phosphorus 4.6 mg/dL (2.5-4.5) H 02/03/18 05:50 Magnesium 1.9 mg/dL (1.7-2.2) 02/03/18 05:50 Iron 40 ug/dL (45-180) L 02/03/18 05:50 TIBC 233 ug/dL (265-497) L 02/03/18 05:50 % Saturation 17 % (20-55) L 02/03/18 05:50 Total Bilirubin 0.2 mg/dL (0.2-1.3) 02/04/18 06:00 AST 25 U/L (14-36) 02/04/18 06:00 ALT 9 U/L (7-56) 02/04/18 06:00 Alkaline Phosphatase 76 U/L (38-126) 02/04/18 06:00 Troponin I < 0.01 ng/mL 02/02/18 18:20 C-Reactive Protein 26.90 mg/L (0.0-9.9) H 02/03/18 05:50 C-React Prot High Sens > 15.00 mg/L (1.00-3.00) H 02/03/18 05:50 Total Protein 7.4 g/dL (5.8-8.3) 02/04/18 06:00 Albumin 3.8 g/dL (3.0-4.8) 02/04/18 06:00 Globulin 3.6 gm/dL 02/04/18 06:00 Albumin/Globulin Ratio 1.1 (1.1-1.8) 02/04/18 06:00 Triglycerides 330 mg/dL (35-160) H 02/02/18 18:20 Cholesterol 180 mg/dL (130-200) 02/02/18 18:20 LDL Cholesterol Direct 106 mg/dL (0-129) 02/02/18 18:20 HDL Cholesterol 30 mg/dL (29-60) 02/02/18 18:20 Procalcitonin < 0.05 NG/ML (0.19-0.49) L 02/03/18 05:50 Free T4 1.31 ng/dL (0.78-2.19) 02/03/18 05:50 TSH 3rd Generation 2.81 mIU/mL (0.46-4.68) 02/03/18 05:50 Urine Color Yellow (YELLOW) 02/02/18 19:00 Urine Appearance Clear (CLEAR) 02/02/18 19:00 Urine pH 6.0 (4.7-8.0) 02/02/18 19:00 Ur Specific [place] <= 1.005 (1.005-1.035) 02/02/18 19:00 Urine Protein Negative mg/dL (<30 mg/dL) 02/02/18 19:00 Urine Glucose (UA) Negative mg/dL (NEGATIVE) 02/02/18 19:00 Urine Ketones Negative mg/dL (NEGATIVE) 02/02/18 19:00 Urine Blood Negative (NEGATIVE) 02/02/18 19:00 Urine Nitrate Negative (NEGATIVE) 02/02/18 19:00 Urine Bilirubin Negative (NEGATIVE) 02/02/18 19:00 Urine Urobilinogen 0.2 E.U./dL (<1 E.U./dL) 02/02/18 19:00 Ur Leukocyte Esterase Trace [place]/uL (NEGATIVE) H 02/02/18 19:00 Urine RBC 0 - 2 /hpf (0-2) 02/02/18 19:00 Urine WBC 1 - 3 /hpf (0-6) 02/02/18 19:00 Ur Epithelial Cells 0 - 2 /hpf (0-5) 02/02/18 19:00 Urine Bacteria Few (NEG) 02/02/18 19:00 Blood Type A POSITIVE 02/02/18 19:00 Blood Type Confirm A POSITIVE 02/03/18 05:50 Antibody Screen Negative 02/02/18 19:00 BBK History Checked No verified bt 02/02/18 19:00 Attending/Attestation - Attestation I have personally seen and examined this patient.: Yes I have fully participated in the care of the patient.: Yes I have reviewed all pertinent clinical information, including history, physical exam and plan: Yes Notes (Text): 02/05/18 17:29 attending note; Patient seen and examined with resident. Patient's daughter and son-in-law by the bedside. Patient is a 62 year old Tamazight speaking female with PMH of asthma, DM, HTN and stroke many years ago presenting to the ED for one week history of headache and right arm numbness/weakness as well as sudden onset vision loss of the right eye. Patient [place] the [place] ago from [facility] and is visiting family locally.
== END 2018-02-04 14:00 | disposition home or self-care (01) | DRG 54 ==
LOC: ED 17:17 → ERH 21:04 → 2RNO 02-03 02:13
PROVIDERS: ADMIT Internal Medicine; ATTEND Internal Medicine
PROC: 3E02340 Introduction of Influenza Vaccine into Muscle, Percutaneous Approach (ICD-10-PCS; principal; 2018-02-04)
PROC: 3E0234Z Introduction of Serum, Toxoid and Vaccine into Muscle, Percutaneous Approach (ICD-10-PCS; 2018-02-04)
DX: R51 Headache (principal); E11.65 Type 2 diabetes mellitus with hyperglycemia; I10 Essential (primary) hypertension; H54.61 Unqualified visual loss, right eye, normal vision left eye; R20.0 Anesthesia of skin; J45.909 Unspecified asthma, uncomplicated; F17.220 Nicotine dependence, chewing tobacco, uncomplicated; Z86.73 Personal history of transient ischemic attack (TIA), and cerebral infarction without residual deficits; Z79.82 Long term (current) use of aspirin; Z79.4 Long term (current) use of insulin; Z23 Encounter for immunization

== ENCOUNTER 2018-03-17 09:48 | Outpatient (CLI) | payer OTHER | END 2018-03-17 09:49 | disposition home or self-care (01) | LOC: LAB 09:48 ==

== ENCOUNTER 2018-03-20 09:51 | Outpatient (CLI) | payer OTHER | END 2018-03-20 09:52 | disposition home or self-care (01) | LOC: RAD 09:51 ==

== ENCOUNTER 2018-03-28 08:33 | Outpatient (CLI) | payer OTHER | END 2018-03-28 08:34 | disposition home or self-care (01) | LOC: RAD 08:33 | DX: R49.0 Dysphonia (principal); R13.10 Dysphagia, unspecified ==

== ENCOUNTER 2018-03-31 10:22 | Outpatient (CLI) | payer OTHER | END 2018-03-31 10:23 | disposition home or self-care (01) | LOC: CARDIO 10:22 ==

== ENCOUNTER 2018-04-03 13:05 | Outpatient (CLI) | payer OTHER, SELFPAY, MEDICAID | END 2018-04-03 13:06 | disposition home or self-care (01) | LOC: RAD 13:05 ==

== ENCOUNTER 2018-04-22 11:13 | Outpatient (CLI) | payer OTHER | END 2018-04-22 11:14 | disposition home or self-care (01) | LOC: LAB 11:13 | DX: G47.33 Obstructive sleep apnea (adult) (pediatric) (principal); E11.9 Type 2 diabetes mellitus without complications; E78.5 Hyperlipidemia, unspecified; I10 Essential (primary) hypertension; R30.9 Painful micturition, unspecified ==